=== PATIENT | female | born 1980 | race Hispanic/Latino ===

== ENCOUNTER 2020-12-18 01:00 | Emergency (ER) | payer OTHER ==
[~2020-12-18] VITALS: Ht 149.9 cm; Wt 55.3 kg
[2020-12-18] MEDS ORDERED: DICYCLOMINE HCL 10 MG CAP PO STA (02:51)
[2020-12-18] MEDS ORDERED: DICYCLOMINE HCL 10 MG CAP ONE (03:41)
[2020-12-18] MEDS ORDERED: SODIUM CHLORIDE 0.9% 50ML 50 ML ONE (03:50)
[2020-12-18] MEDS ORDERED: IOPAMIDOL 370 MG/ML 200 ML INFUS..BTL INJ ONE (03:50)
[2020-12-18] MEDS ORDERED: ONDANSETRON ODT4 MG PO (05:02)
[2020-12-18] MEDS ORDERED: CIPRO500 MG PO (05:02)
[2020-12-18] MEDS ORDERED: TYLENOL # 31 EA PO (05:02)
[2020-12-18] MEDS ORDERED: FLAGYL500 MG PO (05:02)
[2020-12-18 05:11] VITALS: BP 110/67
== END 2020-12-18 05:11 | disposition home or self-care (01) ==
LOC: FSED 01:19
DX: R10.30 Lower abdominal pain, unspecified (principal); R11.2 Nausea with vomiting, unspecified; K52.9 Noninfective gastroenteritis and colitis, unspecified
CPT/HCPCS: 74177; 99284; Q9967; 80053; 81003; 81025; 85025; 85610